=== PATIENT | male | born 1960 | race Caucasian/White ===

== ENCOUNTER 2017-01-01 15:55 | Emergency (ER) | payer BC ==
[~2017-01-01] VITALS: Ht 188 cm; Wt 96.5 kg
[~2017-01-01 15:55] MED LIST: CLX20 PO; LRT5 PO
[2017-01-01 15:57] VITALS: TEMP 36.5; Ht 188 cm; Wt 96.5 kg
[2017-01-01] MEDS ORDERED: RABIES VACCINE (IMOVAX) HUMAN DIPL CELL 2.5 INTER.UNIT/ML SYR IM. ONE (16:15)
[2017-01-01] MEDS ORDERED: RABIES IMMUNE GLOBULIN (HUMAN) 150 INTER.UNIT/ML 2 ML VIAL IM. ONE (16:15)
[2017-01-01] MEDS ORDERED: CLX20 PO (16:44)
--- NOTE | 2017-01-01 17:09 | EMERGENCY ROOM VISIT NOTE ---
History First contact with patient: 16:02 Chief Complaint: RABIES VACCINE Stated Complaint: COYOTE ATTACK History of Present Illness The patient is a 56 year old male who presents to the Emergency Room via private vehicle with complaints of "coyote attack". The patient states that 1 hour prior to arrival, he was on a stepladder operating a hammer drill when he felt a scratch on the back of his right leg. He thought this was his cat, when he turned around and looked it was a light brown colored coyote. He states that it seemed like it was going to attack, and was not scared away. He then threw the cordless hammer drill at the coyote in the coyote did not seem to back off. His son then tried to shoot the coyote with an arrow, and the arrow bounced off the coyote and the coyote then shredded the arrow. The patient states that he saw this coyote or one very similar earlier in the week while he was having a family get-together. He states that the coyote did seem very strange at that time. He denies receiving the rabies prophylaxis in the past. His tetanus is up-to-date. He notes that he cycles frequently, and weighs himself daily. His last weight was 205 lbs. Review of Systems A complete 6-point Review of Systems was discussed with the patient, with pertinent positives and negatives listed in the History of Present Illness. All remaining Review of Systems questions can be considered negative unless otherwise specified. Past Medical/Surgical History None Family History None Social History Smoking Status: Never Smoker Social History: Patient is currently self-employed. Current/Historical Medications Scheduled Citalopram (Citalopram Hydrobromide), 20 MG PO DAILY Allergies Coded Allergies: No Known Allergies (Unverified , 09/07/10) Physical Exam Vital Signs Date Time Temp Pulse Resp B/P (MAP) Pulse Ox O2 Delivery O2 Flow Rate FiO2 01/01/17 17:23 66 18 123/93 95 Room Air 01/01/17 15:57 36.5 67 18 143/82 96 Room Air Physical Exam VITAL SIGNS - Vital signs and nursing notes were reviewed. GENERAL -56-year-old male appearing his stated age who is in no acute distress. Communicates well with provider and answers questions appropriately. SKIN - Without rashes. There are 4 small superficial little scratches on the patient's right lateral medial calf. No bleeding noted. Medical Decision & Procedures Medications Administered Medications (Trade) Dose Ordered Sig/Pritesh Route Start Time Stop Time Status Last Admin Dose Admin Rabies Immune Globulin (Imogam Rabies Inj) 1,860 interunit ONCE ONCE IM. 01/01/17 16:15 01/01/17 16:16 DC 01/01/17 16:42 1,860 INTERUNIT Rabies Vaccine Human Diploid Cell (Imovax Rabies) 2.5 interunit ONCE ONCE IM. 01/01/17 16:15 01/01/17 16:16 DC 01/01/17 16:41 2.5 INTERUNIT Medical Decision Patient was seen and evaluated as above. He presents to us today either with coyote scratches or superficial bites to the right lateral medial calf. There is no evidence of severe breaks in the integument. No bites noted. I do believe that because the coyote subjectively appears to be behaving appropriately, initiation of rabies prophylaxis secondary to concern over significant encounter was initiated. He was given his first Imovax vaccine injection, followed by weight based immunoglobulin which was dosed at 20 units per kilogram. The patient notes that he weighs himself daily and his recent weight was 205 pounds. This was converted kilograms and then the immunoglobulin was correctly based upon this. He tolerated the injections very well. He is to return on days 10/07/2013 of which she was provided the dates and is to return for subsequent injections. I then cleansed the region affected with sterile saline and gauze. He was educated upon worrisome symptoms which to return, had questions prior to discharge, and was discharged home in good condition.. In evaluation treatment this patient following differential diagnoses were entertained: Need for prophylactic vaccination against rabies encounter, among others. Due to the superficial degree of the wound I do not believe that the patient needs antibiotic prophylaxis. Impression Primary Impression: Need for post exposure prophylaxis for rabies Additional Impression: [place] encounter Departure Information Dispostion Home / Self-Care Condition GOOD Referrals Gamal Leroy M.D. (PCP) Patient Instructions My [facility] Additional Instructions You were seen in the Emergency Department today for your Rabies Prophylaxis Injection status post coyote encounter. You have received the Imovax and immunoglobulin as per current protocol. The immunoglobulin is one dose that was given today. The Imovax will need to be repeated on days 3, 7 and 14. Please return for these. Today is considered day 0, therefore it is recommended you return on January 04, , and for subsequent injections of immovax. Please be very careful as there is great concern that this cavity may have rabies. For pain or fever control, you can use the following [id number] medicines (if >12 yo): - Regular strength (325mg/tab) Tylenol (acetaminophen) 2 tabs every 4-6 hours as needed. Do not exceed 12 tablets in a 24 hour period. Avoid taking more than 3 grams (3000 mg) of Tylenol per day. This includes any other sources of acetaminophen you may take on a regular basis. - Regular strength (200 mg/tab) Advil (ibuprofen) 1-2 tabs every 4-6 hours as needed. Do not exceed a dose of 3200 mg per day. Return to the emergency department if your symptoms worsen despite treatment course outlined above. Problem Qualifiers
[2017-01-01 17:23] VITALS: BP 123/93; PULSE 66; O2SAT 95
== END 2017-01-01 17:46 | disposition home or self-care (01) ==
LOC: C.EDB 15:56 → C.EDD 17:46
DX: Z23 Encounter for immunization (principal); Z20.2 Contact with and (suspected) exposure to infections with a predominantly sexual mode of transmission

== ENCOUNTER 2017-01-04 11:33 | Emergency (ER) | payer BC ==
[~2017-01-04] VITALS: Ht 188 cm; Wt 98.0 kg
[~2017-01-04 11:33] MED LIST changes: -LRT5 PO
[2017-01-04 11:41] VITALS: TEMP 36.7; Ht 188 cm; Wt 98.0 kg
[2017-01-04] MEDS ORDERED: RABIES VACCINE (IMOVAX) HUMAN DIPL CELL 2.5 INTER.UNIT/ML SYR IM. ONE (12:00)
[2017-01-04 12:22] VITALS: BP 126/80; PULSE 70; O2SAT 97
--- NOTE | 2017-01-04 15:03 | EMERGENCY ROOM VISIT NOTE ---
ED Visit Note First contact with patient: 11:43 Chief complaint: Rabies exposure HPI: This 56-year-old white male presents for his next injection of Imovax. This is injection # 2. patient denies any rashes or problems from the last injection. No shortness of breath. Pain is 0/10. He states the ramirez valero was eventually shot by a neighbor. It was tested and was positive for rabies. He states the roommate was also shot and tested positive for rabies. He states it actually attempted to break into a neighbor's house through the screen door. Review of systems: Unchanged from previous exam. Surgical history: Unchanged from previous exam. Medical history: Unchanged from previous exam Current medications: Unchanged from previous exam Allergies: Unchanged from previous exam Social history: Unchanged from previous exam Vitals: Afebrile. Filed in patient's chart. General: Well-developed, well-nourished, middle-aged white male, in no acute distress. He is sitting in a chair. Alert and oriented. Skin:Warm and dry with good turgor. No rashes or lesions. No ecchymosis or erythema. The patient is not diaphoretic. No abrasions. Musculoskeletal: Full motion of the shoulder without discomfort. Impression: Rabies exposure. Plan: Patient was educated regarding today's findings. They were given Imovax 1 ML IM. Patient was monitored for 20 minutes. No adverse changes were noted. Patient was discharged with instructions to follow-up at the next scheduled injection on . Tylenol as needed for any discomfort. Benadryl as needed for any itch. Return to the ER for any signs of allergic reaction. Current/Historical Medications Scheduled Citalopram (Citalopram Hydrobromide), 20 MG PO DAILY Allergies Coded Allergies: No Known Allergies (Unverified , 09/07/10) Vital Signs Date Time Temp Pulse Resp B/P (MAP) Pulse Ox O2 Delivery O2 Flow Rate FiO2 01/04/17 12:22 70 18 126/80 97 01/04/17 11:41 36.7 72 18 125/88 96 Room Air Medications Administered Medications (Trade) Dose Ordered Sig/Pritesh Route Start Time Stop Time Status Last Admin Dose Admin Rabies Vaccine Human Diploid Cell (Imovax Rabies) 2.5 interunit ONCE ONCE IM. 01/04/17 12:00 01/04/17 12:01 DC 01/04/17 11:55 2.5 INTERUNIT Departure Information Impression Primary Impression: Encounter for repeat administration of rabies vaccination Dispostion Home / Self-Care Condition FAIR Forms WORK / SCHOOL INSTRUCTIONS, HOME CARE DOCUMENTATION FORM, MOTRIN USE, TYLENOL USE, IMPORTANT VISIT INFORMATION Patient Instructions My [facility] Additional Instructions Tylenol and Motrin every 6 hours as needed for mild discomfort Benadryl every 6 hours as needed for any itch/redness Return to the ED for any other concerns Also return on for your next vaccine administration
== END 2017-01-04 12:23 | disposition home or self-care (01) ==
LOC: C.EDB 11:35 → C.EDD 12:23
DX: Z23 Encounter for immunization (principal); Z20.3 Contact with and (suspected) exposure to rabies

== ENCOUNTER 2017-01-08 23:20 | Emergency (ER) | payer BC ==
[~2017-01-08] VITALS: Ht 188 cm; Wt 99.9 kg
[2017-01-08 23:24] VITALS: BP 117/82; PULSE 71; TEMP 36.4; O2SAT 95; Ht 188 cm; Wt 99.9 kg
[2017-01-08] MEDS ORDERED: RABIES VACCINE (IMOVAX) HUMAN DIPL CELL 2.5 INTER.UNIT/ML SYR IM. ONE (23:30)
--- NOTE | 2017-01-09 00:02 | EMERGENCY ROOM VISIT NOTE ---
History First contact with patient: 23:25 Chief Complaint: RABIES VACCINE REPEAT VISIT Stated Complaint: 3RD RABIES SHOT History of Present Illness The patient is a 56 year old male who presents to the Emergency Room for his third Imovax injection after being attacked by a coyote one week ago. The patient reports that since that incident, but coyote was killed and tested positive for rabies. The patient reports that the scratches on his legs were not deep, therefore antibiotics were not prescribed. The patient denies any wound problems or adverse reactions from his Imovax injections. Review of Systems 6 system review was performed and was negative except for pertinent positives and negatives as indicated in history of present illness Past Medical/Surgical History Medical Problems: (1) Idiopathic Scoliosis (2) Lumbosacral Spondylosis Surgical Problems: (1) No history of previous surgery Family History Unremarkable Social History Smoking Status: Never Smoker Alcohol Use: occasionally Marital Status: Housing Status: lives with family Occupation Status: employed Current/Historical Medications Scheduled Citalopram (Citalopram Hydrobromide), 20 MG PO DAILY Allergies Coded Allergies: No Known Allergies (Unverified , 01/08/17) Physical Exam Vital Signs Date Time Temp Pulse Resp B/P (MAP) Pulse Ox O2 Delivery O2 Flow Rate FiO2 01/08/17 23:24 36.4 71 18 117/82 95 Room Air Physical Exam CONSTITUTIONAL: Healthy and well nourished. HEENT: Normocephalic, atraumatic. NECK: Full active range of motion without discomfort. INTEGUMENTARY: No rash or other significant dermatologic conditions noted. NEUROLOGIC: No focal neurologic deficits noted. Medical Decision & Procedures ED Course Patient history and physical exam were performed. The patient was administered Imovax without adverse reaction. The patient was instructed to return in one week for his fourth and final Imovax injection. Medical Decision Impression Primary Impression: Rabies, need for prophylactic vaccination against Departure Information Dispostion Home / Self-Care Forms HOME CARE DOCUMENTATION FORM, IMPORTANT VISIT INFORMATION Patient Instructions [facility] Additional Instructions Return in one week for your fourth and final Imovax injection.
== END 2017-01-09 00:01 | disposition home or self-care (01) ==
LOC: C.EDB 23:21
DX: Z23 Encounter for immunization (principal); Z20.3 Contact with and (suspected) exposure to rabies; M41.20 Other idiopathic scoliosis, site unspecified; M47.817 Spondylosis without myelopathy or radiculopathy, lumbosacral region

== ENCOUNTER 2017-01-15 13:06 | Emergency (ER) | payer BC ==
[~2017-01-15] VITALS: Ht 188 cm; Wt 97.0 kg
[2017-01-15 13:08] VITALS: TEMP 36.5; Ht 188 cm; Wt 97.0 kg
--- NOTE | 2017-01-15 13:29 | EMERGENCY ROOM VISIT NOTE ---
ED Visit Note First contact with patient: 13:12 CHIEF COMPLAINT: Rabies prophylaxis HISTORY OF PRESENT ILLNESS: This 56-year-old male patient presents to the emergency department ambulatory for their last rabies shot. The patient has not had any complications from the previous injections. They deny any other complaints. REVIEW OF SYSTEMS: A 6 system review of systems was completed with positives and pertinent negatives listed in the HPI. ALLERGIES: No known drug allergies MEDICATIONS: Unchanged from previous PMH: Unchanged from previous visit. PHYSICAL EXAM: Vital Signs: Reviewed Nurse's notes, vital signs stable. GENERAL : Visits a 56-year-old male, in no acute distress, well-developed, well- nourished. HEAD: Atraumatic, without temporal or scalp tenderness. EYES: PERRLA, EOMI, no discharge or injection. SKIN: Normal. NEUROLOGICAL: Alert and cooperative. Sensory and motor functions grossly intact. EMERGENCY DEPARTMENT COURSE: I examined the patient. The patient was given Imovax 1ml IM. The patient was observed for 20 minutes with no reaction. The patient was discharged home in stable condition. DIAGNOSIS: Rabies prophylaxis Current/Historical Medications Scheduled Citalopram (Citalopram Hydrobromide), 20 MG PO DAILY Allergies Coded Allergies: No Known Allergies (Unverified , 01/15/17) Vital Signs Date Time Temp Pulse Resp B/P (MAP) Pulse Ox O2 Delivery O2 Flow Rate FiO2 01/15/17 13:35 87 18 143/94 96 Room Air 01/15/17 13:08 36.5 85 18 139/85 95 Room Air Medications Administered Medications (Trade) Dose Ordered Sig/Pritesh Route Start Time Stop Time Status Last Admin Dose Admin Rabies Vaccine Human Diploid Cell (Imovax Rabies) 2.5 interunit ONCE ONCE IM. 01/15/17 13:30 01/15/17 13:31 DC 01/15/17 13:32 2.5 INTERUNIT Departure Information Impression Primary Impression: Rabies, need for prophylactic vaccination against Dispostion Home / Self-Care Condition GOOD Referrals No Doctor, Assigned (PCP) Patient Instructions My [facility], Rabies
[2017-01-15] MEDS ORDERED: RABIES VACCINE (IMOVAX) HUMAN DIPL CELL 2.5 INTER.UNIT/ML SYR IM. ONE (13:30)
[2017-01-15 13:35] VITALS: BP 143/94; PULSE 87; O2SAT 96
== END 2017-01-15 13:56 | disposition home or self-care (01) ==
LOC: C.EDB 13:07 → C.EDD 13:56
DX: Z23 Encounter for immunization (principal); Z20.3 Contact with and (suspected) exposure to rabies